=== PATIENT | male | born 1980 | race Caucasian/White ===

== ENCOUNTER → 2022-02-08 11:10 | Outpatient (CLI) | payer BC, SELFPAY ==
--- NOTE | ~2022-02-08 | US_ITS ---
EXAMINATION: US soft tissue head and neck EXAM DATE: 02/08/2022 11:34 INDICATION: Lymphadenopathy. Symptoms 5-6 weeks No change her pain. TECHNIQUE: Multiple grayscale and Doppler images of the left-sided neck symptomatic region were obtai tho (by a technologist who performed the scan) and subsequently reviewed. There is no prior study fo r comparison. FINDINGS: Scanning in the area of concern demonstrates 2 lymph nodes, one measuring 1.1 x 0.4 x 0.7 cm and the other 0.9 x 0.3 x 0.8 cm. These are well within normal size limits and are probably reactive. The ove rlying skin and subcutaneous fat unremarkable. The underlying musculature probably sternocleidomastoi d, also unremarkable. IMPRESSION: No pathologically enlarged lymph nodes. Reviewed, dictated and finalized at location G.
== END ==
PROVIDERS: Visit Provider Physician Assistant Medical
DX: R59.1 Generalized enlarged lymph nodes (principal)
CPT/HCPCS: 76536

== ENCOUNTER 2022-05-30 12:40 | Emergency (ER) | payer BC, SELFPAY ==
--- NOTE | 2022-05-30 12:45 | ED.BACK ---
HPI - Back Pain/Injury General Chief Complaint: Back Pain/Injury Stated Complaint: back pain Time Seen by Provider: 05/30/22 13:01 Source: patient and RN notes reviewed Mode of arrival: ambulatory Limitations: no limitations History of Present Illness HPI Narrative: 42-year-old male presents concern for right mid back pain. He reports he started having pain while he was jogging yesterday. He denies trauma, injury. He denies history of back pain. He reports the pain is exacerbated when he turns his neck or looks down. He reports its exacerbated with coughing and deep breathing. He denies dysuria, urgency, frequency, hematuria. He denies perianal anesthesia, loss of bowel or bladder function. He denies rash, bruising, redness MD elicited complaint: back pain Related Data Allergies Allergy/AdvReac Type Severity Reaction Status Date / Time No Known Drug Allergies Allergy Unknown Other Verified 05/30/22 12:53 Review of Systems Review of Systems: CONSTITUTIONAL: Denies malaise, chills, sweats, or fever. CARDIOVASCULAR: Denies chest pain, palpitations, or edema. RESPIRATORY: Denies cough or dyspnea. GASTROINTESTINAL: Denies abdominal pain, nausea, vomiting, diarrhea, loss of bowel function GENITOURINARY: Denies dysuria, hematuria, frequency, loss of bladder function. SKIN: Denies rash or itching. MUSCULOSKELETAL: Reports right-sided thoracic back pain NEUROLOGIC: Denies numbness, weakness, or headache. All systems reviewed & are unremarkable except as noted in HPI and below PMFSH Comments At time of signature, agree with nursing past medical, surgical, social and family history. There is no relevant family history pertinent to the presenting complaint Exam Narrative: GENERAL: Well-appearing, well-nourished, and in no acute distress. HEAD: Normocephalic, atraumatic. EYES: PERRLA and EOMI. NECK: Supple. No lymphadenopathy. CHEST: Clear to auscultation. No respiratory distress. HEART: Regular rate and rhythm. Distal pulses palpable and equal, cap refill <3 seconds ABDOMEN: Soft, nontender, nondistended, normal active bowel sounds, no palpable or pulsatile masses. No CVA tenderness MUSCULOSKELETAL: Normal range of motion and strength in all extremities; 5/5 strength with hip flexion and extension, dorsiflexion and extension, knee flexion and extension, plantar flexion and extension. Normal sensation in dermatomal distributions with sensitivity to light touch and pain. No midline back tenderness to palpation. No paraspinal tenderness. Transfers from lying to sitting to standing. SKIN: Warm, dry, no rash. No ecchymosis, erythema, open wounds to back. NEURO: No focal deficits. Alert and oriented x3. Reflexes intact. Normal gait. PSYCH: Normal mood and affect Course Course Emergency Course: Patient is aware of diagnosis, understands and agrees to treatment plan. Anticipatory guidance given. Patient agrees to follow-up as directed and is aware of reasons to seek care at the emergency department. Portions of this record may have been created with voice recognition software Level of Care: Express Care Visit Vital Signs Vital signs: Reviewed. MDM - Back Pain/Injury MDM Narrative Medical decision making narrative: No risk factors or findings concerning for epidural abscess, diskitis, vertebral osteomyelitis, cord compression, cauda equina, vertebral fracture or bone malignancy, AAA, or pyelonephritis. Patient instructed to consider further imaging and workup through their primary care physician as an outpatient if symptoms persist. Critical Care Time Critical Care Time Critical Care Time: No Discharge Plan Discharge Clinical Impression: Back pain Patient Disposition: Home, Self-Care Condition: Stable Additional Instructions: Please follow up with your Primary Care Doctor within 48-72 hours - call for an appointment. Walking and other gentle exercising several times a week has been shown to improve back pain; bed re
[2022-05-30 12:50] VITALS: BP 120/71; PULSE 55; RESP 16; TEMP 36.1; O2SAT 100
== END 2022-05-30 13:12 | disposition home or self-care (01) ==
PROVIDERS: Emergency Provider Nurse Practitioner; PCP Internal Medicine
DX: M54.6 Pain in thoracic spine (principal)
CPT/HCPCS: 99213; G0463